=== PATIENT | male | born 1995 | race Caucasian/White ===

== ENCOUNTER 2020-08-30 22:01 | Emergency (ER) | payer OTHER ==
[2020-08-30] MEDS ORDERED: MELATONIN5 M6 PO (22:28)
[2020-08-30 23:04] LABS: EOS # 0.1 (0.04-0.40); EOS % 1.2 % (0.0-4.0); HEMATOCRIT 46.9 % (42.0-52.0); LYMPH# 2.6 (1.50-4.00); MEAN CELL VOLUME 90 fl (78-100); MEAN CORPUSCULAR HEMOGLOBIN 31 pg (27-31); MEAN CORPUSCULAR HGB CONC 34 g/dL (33-37); MEAN PLATELET VOLUME 11.4 fl (7.4-10.4); MONO # 0.7 (0.20-0.80); NEU # 4.6 (1.40-6.50); PLATELET COUNT 238 K/mm3 (130-400); RED BLOOD COUNT 5.23 M/mm3 (4.20-5.60); RED CELL DISTRIBUTION WIDTH 12.6 % (11.5-14.5); WHITE BLOOD COUNT 8.1 K/mm3 (4.8-10.8)
[2020-08-30 23:14] LABS: POTASSIUM 3.4 mmol/L (3.5-5.1)
[2020-08-30 23:15] LABS: CALCIUM 9.5 mg/dL (8.3-10.5)
[2020-08-30 23:18] LABS: TOTAL BILIRUBIN 0.3 mg/dL (0.2-1.2)
[2020-08-31] MEDS ORDERED: GOOD NEIGHBOR P20 M1 PO (00:14)
[2020-08-31 00:32] VITALS: BP 99/75
== END 2020-08-31 00:32 | disposition home or self-care (01) ==
LOC: ED 22:01
PROVIDERS: Family Medicine
DX: K21.9 Gastro-esophageal reflux disease without esophagitis (principal)
CPT/HCPCS: J3490

== ENCOUNTER → 2023-06-14 | Outpatient (CLI) | payer OTHER ==
[~2023-06-14] MED LIST: GOOD NEIGHBOR P20 M1 PO; MELATONIN5 M6 PO
[2023-06-14 17:06] LABS: BASO # 0.05 K/mm3 (0.02-0.10); EOS # 0.23 K/mm3 (0.04-0.40); EOS % 2.8 % (0.0-4.0); HEMOGLOBIN 15.5 g/dL (13.5-18.0); MEAN CELL VOLUME 93 fl (78-100); MEAN CORPUSCULAR HEMOGLOBIN 31 pg (27-31); MEAN CORPUSCULAR HGB CONC 34 g/dL (33-37); MEAN PLATELET VOLUME 10.5 fl (7.4-10.4); MONO # 0.57 K/mm3 (0.20-0.80); NEU # 5.82 K/mm3 (1.40-6.50); PLATELET COUNT 216 K/mm3 (130-400); RED BLOOD COUNT 4.96 M/mm3 (4.20-5.60); WHITE BLOOD COUNT 8.3 K/mm3 (4.8-10.8)
[2023-06-14 17:13] LABS: ALBUMIN 4.7 g/dL (3.5-5.0); POTASSIUM 4.3 mmol/L (3.5-5.1)
[2023-06-14 17:14] LABS: CALCIUM 9.7 mg/dL (8.3-10.5)
[2023-06-14 17:16] LABS: TOTAL PROTEIN 7.6 g/dL (6.4-8.3)
[2023-06-14 17:18] LABS: TOTAL BILIRUBIN 0.3 mg/dL (0.2-1.2)
== END ==
LOC: LAB 16:33
PROVIDERS: Internal Medicine
DX: M25.562 Pain in left knee (principal)